=== PATIENT | female | born 1960 | race Caucasian/White ===

== ENCOUNTER 2022-11-13 14:30 | Emergency (ER) | payer OTHER, SELFPAY ==
[2022-11-13 14:35] VITALS: BP 149/74; PULSE 99; RESP 16; TEMP 36.7; O2SAT 99
--- NOTE | 2022-11-13 14:49 | ED.ANIMALBIT ---
HPI - Animal Bite General Chief Complaint: Animal Bite Stated Complaint: Dog Bite/Right Hip Source: patient and RN notes reviewed History of Present Illness HPI narrative: 62 yo F presents to urgent care with complaints of a dog bite. 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 Pt states the owners of the dog state the dog has been vaccinated. Pt does not recall when her last Tdap occurred. Pt has no other complaints. Related Data Home Medications Medication Instructions Recorded Confirmed fluoride (sodium) 1.1 % dental 1 applic dental DAILY 11/13/22 11/13/22 cream (PreviDent 5000 Plus) Allergies Allergy/AdvReac Type Severity Reaction Status Date / Time Penicillins Allergy Unknown hives Verified 11/13/22 14:57 Review of Systems Review of Systems: CONSTITUTIONAL: Denies fever, chills, or sweats. EYES: Denies visual changes, redness, or discharge. ENT: Denies otalgia and sore throat CARDIOVASCULAR: Denies chest pain, palpitations, or edema. RESPIRATORY: Denies cough or dyspnea. GASTROINTESTINAL: Denies abdominal pain, nausea, vomiting, or diarrhea. GENITOURINARY: Denies dysuria or hematuria. SKIN: Reports scratch to right forearm and bite to right hip. MUSCULOSKELETAL: Denies back pain, joint pain, or myalgia. NEUROLOGIC: Denies headache, numbness, or weakness. Psychiatric: Reports being shaken up from the incident PMFSH Comments At the time of my signature, I reviewed and agree with the nursing past medical, surgical, social, and family history. There is no relevant family history pertinent to the patient complaint. Exam Narrative: GENERAL: This is a well-nourished, well-developed patient, in no apparent distress. HEAD: normocephalic, atraumatic. EYES: PERRL. Sclera clear/white. Vision is grossly intact. EARS: External ears normal, auditory canals clear and without drainage, TMs normal without perforation. Hearing grossly intact. NOSE: External nose normal with no obvious nasal discharge, nares without redness, no rhinorrhea. THROAT: Mucous membranes moist, posterior pharynx clear. NECK: Neck supple, non-tender without lymphadenopathy, masses or thyromegaly. CARDIOVASCULAR: Regular rate and rhythm without murmurs, gallops, or rubs. RESPIRATORY: Clear to auscultation. Breath sounds equal bilaterally. No wheezes, rales, or rhonchi. GASTROINTESTINAL: Abdomen soft, non-tender, nondistended. Bowel sounds are active. No hepato-splenomegaly, or palpable masses. No guarding. SKIN: abrasion to right FA. Superficial wound to right hip. NEURO: awake, alert, and oriented to person, place and time. There were no obvious focal neurologic abnormalities. Course Course Level of Care: Express Care Visit Vital Signs Vital signs: Vital Signs Temperature 98.0 F 11/13/22 14:35 Pulse Rate 99 11/13/22 14:35 Respiratory Rate 16 11/13/22 14:35 Blood Pressure 149/74 H 11/13/22 14:35 Pulse Oximetry 99 11/13/22 14:35 Oxygen Delivery Room Air 11/13/22 14:35 Temperature 98.0 F 11/13/22 14:35 Pulse Rate 99 11/13/22 14:35 Respiratory Rate 16 11/13/22 14:35 Blood Pressure 149/74 H 11/13/22 14:35 Pulse Oximetry 99 11/13/22 14:35 Oxygen Delivery Room Air 11/13/22 14:35 Reviewed MDM - Animal Bite MDM Narrative Medical decision making narrative: Monitor the areas of concern and if you notice any signs of infection including drainage, redness, or increased pain, be seen by a medical provider to be evaluated for cellulitis or further infection. Take your antibiotic as directed. Follow up with your second hand. If you find out that the dog is not vaccinated against rabies, you will need to visit the health dept for the rabies vaccination series. Wounds were cleansed by RN. Appropriate paperwork was sent to [facility]. Differential Diagnosis Differential diagnosis: Likely bite by animal, rabies cont
[2022-11-13] MEDS: TETANUS,DIPHTHERIA,AC PERTUSSIS ADULT (0.5 ML) BOOSTRIX IM (15:00)
--- NOTE | 2022-11-13 15:28 | PC.NURSE ---
WOUNDS WERE CLEANED AND BANDAID APPLIED TO RT HIP. 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 PER PT, SHE WAS INITIALLY INFORMED PT WAS UP TO DATE ON HIS VACCINATIONS.
== END 2022-11-13 15:15 | disposition home or self-care (01) ==
PROVIDERS: Emergency Provider Nurse Practitioner Family; PCP Internal Medicine Infectious Disease
DX: S70.271A Other superficial bite of hip, right hip, initial encounter (principal); W54.0XXA Bitten by dog, initial encounter; S50.811A Abrasion of right forearm, initial encounter; W54.8XXA Other contact with dog, initial encounter; Z23 Encounter for immunization
CPT/HCPCS: 90471; 90715; 99203; G0463

== ENCOUNTER 2023-06-09 12:15 | Emergency (ER) | payer OTHER, SELFPAY ==
[2023-06-09 12:20] VITALS: BP 149/77; PULSE 81; RESP 20; TEMP 36.3; O2SAT 100
--- NOTE | 2023-06-09 13:42 | ED.URI ---
HPI - URI/Sore Throat General Chief Complaint: Upper Respiratory Infection Stated Complaint: sore throat Time Seen by Provider: 06/09/23 13:30 Source: patient, RN notes reviewed and old records reviewed Mode of arrival: ambulatory Limitations: no limitations History of Present Illness HPI Narrative: 63-year-old female who presents to [facility] with 6 day history of some sore throat and nasal drainage. Patient reports that she though it was just allergies at first but has not improved with sinus medication. Patient reports no known fevers, chills or body aches. Patient denies any known exposure to anyone ill. MD elicited complaint: sore throat, rhinorrhea and nasal congestion Onset (ago): day(s) (6) Pain scale (0-10): 3 Description of mucous: clear Able to tolerate fluids by mouth: Yes Exacerbating factors: swallowing Treatments prior to arrival: other (sinus medication) Related Data Allergies Allergy/AdvReac Type Severity Reaction Status Date / Time Penicillins Allergy Unknown hives Verified 11/13/22 14:57 Review of Systems Review of Systems: CONSTITUTIONAL: Denies malaise, chills, sweats, or fever. EYES: Denies visual changes, redness, or discharge. ENT: Reports rhinorrhea, congestion, no sinus pain, no otalgia Positive sore throat. CARDIOVASCULAR: Denies chest pain, palpitations, or edema. RESPIRATORY: Reports no cough.? Denies dyspnea. GASTROINTESTINAL: Denies abdominal pain, nausea, vomiting, diarrhea SKIN: Denies rash or itching. MUSCULOSKELETAL: Denies myalgia. NEUROLOGIC: Denies headache. All systems reviewed & are unremarkable except as noted in HPI and below [facility] Past Medical History Medical History (Updated 06/11/23 @ 07:53 by Olga Alicea NP) Breast cancer Surgical History Surgical History (Updated 06/11/23 @ 07:54 by Olga Alicea NP) History of bilateral mastectomy breast implants Social History Social History (Updated 06/11/23 @ 07:55 by Olga Alicea NP) Smoking status: Never smoker Alcohol intake: current Alcohol use details: social Substance use type: does not use Living arrangements: with family Gender identity (if verbalized by the patient): Female Comments At time of signature, agree with nursing past medical, surgical, social and family history. There is no relevant family history pertinent to the presenting complaint Exam Narrative: GENERAL: Well-appearing, well-nourished, and in no acute distress. HEAD: Normocephalic EYES: PERRLA, conjunctivae clear ENT: Nares clear, turbinates edematous and erythematous, clear discharge. Mucous membranes moist. TM pearly faustin with dull light reflex bilaterally; no tragal tenderness. Oropharynx erythematous without lesions. Tonsils red enlarged and without exudate, no drooling, no hoarseness, no trismus, uvula midline.some post nasal drainage NECK: Supple. lymphadenopathy CHEST: Clear to auscultation, breath sounds equal. No wheezing, rhonchi, rales, or stridor. No respiratory distress, speaks in full sentences.SAO2 100% on room air HEART: Regular rate and rhythm. No murmur heard. SKIN: Warm, dry, no rash. NEURO: Alert and oriented x3. PSYCH: Normal mood and affect Course Course Emergency Course: Patient is aware of diagnosis, understands and agrees to treatment plan.? Anticipatory guidance given.? Patient agrees to follow-up as directed and is aware of reasons to seek care at the emergency department. Portions of this record may have been created with voice recognition software Level of Care: Express Care Visit Vital Signs Vital signs: Vital Signs Temperature 36.3 C L 06/09/23 12:20 Pulse Rate 81 06/09/23 12:20 Respiratory Rate 20 06/09/23 12:20 Blood Pressure 149/77 H 06/09/23 12:20 Pulse Oximetry 100 06/09/23 12:20 Oxygen Delivery Room Air 06/09/23 12:20 Temperature 36.3 C L 06/09/23 12:20 Pulse Rate 81 06/09/23 12:20 Respiratory Rat
== END 2023-06-09 14:00 | disposition home or self-care (01) ==
PROVIDERS: Emergency Provider Registered Nurse; PCP Internal Medicine Infectious Disease
DX: J02.0 Streptococcal pharyngitis (principal); Z20.822 Contact with and (suspected) exposure to COVID-19; Z85.3 Personal history of malignant neoplasm of breast; Z90.13 Acquired absence of bilateral breasts and nipples
CPT/HCPCS: 87426; 87880; 99213; C9803; G0463